=== PATIENT | male | born 1960 | race Caucasian/White ===

== ENCOUNTER 2018-06-01 20:03 | Emergency (ER) | payer SELFPAY ==
[2018-06-01 20:13] VITALS: RESP 20; TEMP 97.8
[2018-06-01] MEDS ORDERED: Alum-Mag Hydrox-Simethicone Susp (30 mL) PO STA (21:32)
--- NOTE | 2018-06-01 21:35 | C.PDOC ---
History Of Present Illness 57-year-old male who arrived from [place] two days ago presents to the ED for evaluation of loose stools noted yesterday and today. Patient also reports crampy abdominal discomfort and associated subjective fever. Patient has taken Maalox tablets with some improvement. Patient is concerned he may have a parasitic infection, and denies history of parasitic infection in the past. Patient denies nausea, vomiting, weakness. Time Seen by Provider: 06/01/18 21:18 Chief Complaint (Nursing): Abdominal Pain History Per: Patient History/Exam Limitations: no limitations Onset/Duration Of Symptoms: Days (2) Current Symptoms Are (Timing): Still Present Location Of Pain/Discomfort: Diffuse Quality Of Discomfort: Cramping Associated Symptoms: Fever. denies: Nausea, Vomiting Past Medical History Reviewed: Historical Data, Nursing Documentation, Vital Signs Vital Signs: Last Vital Signs Temp 97.8 F 06/01/18 20:08 Pulse 88 06/01/18 20:08 Resp 20 06/01/18 20:08 BP 147/84 06/01/18 20:08 Pulse Ox 98 06/01/18 20:08 - Medical History PMH: Depression, Hypercholesterolemia Surgical History: No Surg Hx Family History: States: Unknown Family Hx - Social History Hx Alcohol Use: No Hx Substance Use: No - Immunization History Hx Tetanus Toxoid Vaccination: No Hx Influenza Vaccination: No Hx Pneumococcal Vaccination: No Review Of Systems Constitutional: Positive for: Fever. Negative for: Weakness Gastrointestinal: Positive for: Abdominal Pain, Other (loose stools ). Negative for: Nausea, Vomiting Physical Exam - Physical Exam Appears: Non-toxic, No Acute Distress, Other (obese male ) Skin: Normal Color, Warm, Dry Head: Atraumatic, Normacephalic Eye(s): bilateral: Normal Inspection Oral Mucosa: Moist Throat: Normal, No Erythema, No Exudate Neck: Supple Chest: Symmetrical, No Deformity, No Tenderness Cardiovascular: Rhythm Regular, No Murmur Respiratory: Normal Breath Sounds, No Rales, No Rhonchi, No Wheezing Gastrointestinal/Abdominal: Soft, No Tenderness, No Guarding, No Rebound, Other (obese ) Extremity: Normal ROM, Capillary Refill (less than 2 seconds ) Neurological/Psych: Oriented x3, Normal Speech, Normal Cognition ED Course And Treatment O2 Sat by Pulse Oximetry: 98 (on RA) Pulse Ox Interpretation: Normal Progress Note: Maalox PO and Pepcid PO given. Medical Decision Making Medical Decision Making: arrived from [place] 2 days ago 2 soft bm yesterday and 5 today benign belly improved symptoms today no abx/anti-parasitics indicated at this time. defers w/u w informed consent prefers conservative tx- ppi/Maalox educated. though probably viral or food born diarrhea and resolving, pt and family prefer an Rx for Flagyl "just in case" to be started in 2-3 days PRN as they will be traveling back to [facility] by road. Disposition Doctor Will See Patient In The: Office Counseled Patient/Family Regarding: Studies Performed, Diagnosis - Disposition Referrals: [facility] [Outside] [employer] [facility] [Outside] [facility] [Outside] [facility] [Outside] Disposition: HOME/ ROUTINE Disposition Time: 21:35 Condition: GOOD Additional Instructions: BRAT diet: Bananas, white rice, apples/applesauce, toast/bread plenty of fluids/gatorade/tea/water stool sample as needed (cup and commode insert given) Maalox 30 cc (one tablespoon) 5-7x/day Pepcid 20 mg every 12 hours- lowers stomach acid Prescriptions: Metronidazole [Flagyl] 500 mg PO TID #15 tablet Instructions: Diarrhea in Adolescents and Adults Forms: [employer]To [employer] (Armenian) - Clinical Impression Clinical Impression: Diarrhea - Scribe Statement The provider has reviewed the documentation as recorded by the Scribe (Geri Rice) Provider Attestation: All medical record entries made by the Scribe were at my direction and personally dictated by me. I have reviewed the chart and agree that the record accurately reflects my personal performance of the history, physical exam, medical decision making, and the department course for this patient. I have also personally directed, reviewed, and agree with the discharge instructions and disposition.
[2018-06-01] MEDS ORDERED: Alum-Mag Hydrox-Simethicone Susp (30 mL) ONE (21:40)
[2018-06-01 21:49] VITALS: BP 134/78; PULSE 99
[2018-06-01 22:11] VITALS: O2SAT 98
== END 2018-06-01 21:43 | disposition home or self-care (01) ==
LOC: C.ER 20:03
DX: R19.7 Diarrhea, unspecified (principal)